=== PATIENT | female | born 1995 | race African-American/Black ===

== ENCOUNTER 2021-08-07 19:30 | Emergency (ER) | payer OTHER ==
[2021-08-07 20:01] VITALS: BP 111/69; PULSE 67; TEMP 98.2; BMI 24.7
[2021-08-07] MEDS ORDERED: IBUPROFEN 400 MG TABLET (FP) PO ONE ×2 (22:11→22:28)
[2021-08-07] MEDS ORDERED: ACETAMINOPHEN 500 MG TABLET (FP) PO ONE (22:11)
[2021-08-07] MEDS ORDERED: ACETAMINOPHEN 500 MG TABLET (FP) ONE (22:28)
== END 2021-08-07 23:52 | disposition left against medical advice (07) ==
LOC: JER 19:30
DX: T74.11XA Adult physical abuse, confirmed, initial encounter (principal); M25.561 Pain in right knee
CPT/HCPCS: 99283-25